=== PATIENT | female | born 1955 | race African-American/Black ===

== ENCOUNTER 2016-05-21 00:09 | Emergency (ER) | payer SELFPAY ==
[~2016-05-21] VITALS: Ht 177.8 cm; Wt 74.8 kg
[2016-05-21 00:41] LABS: Basophils # (auto) 0.1 uL; Basophils % (auto) 1.4 % (0.0-2.0); DEFINITIVE VIEW TRANSMISSION; Eosinophils # (auto) 0.1 uL; Eosinophils % (auto) 0.9 % (0.0-7.0); Hematocrit 41.2 % (36.0-46.0); Hemoglobin 12.4 g/dL (12.2-16.2); Lymphocytes # (auto) 1.7 uL; Lymphocytes % (auto) 16.2 % (10.0-50.0); Mean Corpuscular Hemoglobin 27.3 pg (28.0-32.0); Mean Corpuscular Hgb Conc. 30.2 g/dL (32.0-36.0); Mean Corpuscular Volume 90.2 fL (80.0-100.0); Mean Platelet Volume 9.5 fL (7.4-10.4); Monocytes # (auto) 0.7 uL; Neutrophils # (auto) 7.7 uL; Neutrophils % (auto) 74.5 % (37.0-80.0); Platelet Count (auto) 163 10^3/uL (140-450); Red Cell Distribution Width 13.4 % (11.6-16.0); White Blood Cell 10.3 10^3/uL (4.4-10.8)
[2016-05-21 00:54] LABS: INR 0.98 (0.9-1.15); Partial Thromboplastin Time 24.6 sec (22.64-33.71); Prothrombin Time 10.6 sec (9.37-12.3)
[2016-05-21 01:06] LABS: Albumin 3.9 g/dL (3.4-5.0); Anion Gap 6 (5-15); Aspartate Aminotransferase 23 U/L (15-37); BUN/Creatinine Ratio 8.7; Blood Urea Nitrogen 22 mg/dL (7-18); Calcium 10.6 mg/dL (8.5-10.1); Carbon Dioxide 22 mmol/L (21-32); Chloride 112 mmol/L (98-107); GFR African American 25 mL/min; GFR Non-African American 20 mL/min; Glucose 110 mg/dL (74-106); Potassium 4.7 mmol/L (3.5-5.1); Sodium 140 mmol/L (136-145)
[2016-05-21 01:10] LABS: Alkaline Phosphatase 101 U/L (45-117); Bilirubin, Total 0.3 mg/dL (0.2-1.0); Total Protein 8.2 g/dL (6.4-8.2)
[2016-05-21] MEDS ORDERED: HYDROmorphone HCL 2 MG/ML VL IV ONE (03:00)
[2016-05-21] MEDS ORDERED: ONDANSETRON HCL 4 MG/2 ML VIAL IV ONE (03:00)
[2016-05-21] MEDS ORDERED: SODIUM CHLORIDE 0.9% 1,000 ML IV ONE (03:00)
[2016-05-21 05:10] VITALS: BP 115/39
[2016-05-21 05:18] LABS: Urine Bilirubin Negative (Negative); Urine Blood Negative /uL (Negative); Urine Color Yellow (Yellow); Urine Glucose Normal (Normal); Urine Hyaline Cast MOD /lpf (0 - 2); Urine Ketone Negative (Negative); Urine Mucus FEW (None Seen); Urine Nitrite Negative (Negative); Urine RBC 6 /hpf (0 - 4); Urine Squamous Epithelial Cell FEW /hpf (<5); Urine Urobilinogen Normal (Negative); Urine pH 5.5 (5.0-8.0)
== END 2016-05-21 06:28 | disposition home or self-care (01) ==
LOC: ER 00:11
DX: N20.0 Calculus of kidney (principal); F12.10 Cannabis abuse, uncomplicated; F14.10 Cocaine abuse, uncomplicated; I10 Essential (primary) hypertension; J45.909 Unspecified asthma, uncomplicated; R11.2 Nausea with vomiting, unspecified; F17.210 Nicotine dependence, cigarettes, uncomplicated; Z88.0 Allergy status to penicillin
CPT/HCPCS: 36415; 74176; 80053; 81001; 82150; 83690; 83735; 84484; 85025; 85610; 85730; 93005; 94761; 96361; 96374; 96375; 99285; G0434; J1170; J2405; J7030

== ENCOUNTER 2016-06-10 08:01 | Observation (INO) | payer MEDICAID ==
[~2016-06-10] VITALS: Ht 180.3 cm; Wt 68.0 kg
[2016-06-10] MEDS ORDERED: SODIUM CHLORIDE 0.9% 1,000 ML IV ONE (08:57)
[2016-06-10] MEDS ORDERED: PROCHLORPERAZINE EDISYLATE 5 MG/ML 2ML VIAL IV ONE (09:00)
[2016-06-10] MEDS ORDERED: NALBUPHINE HCL 10 MG/1ml INJECTION IV ONE (09:00)
[2016-06-10 10:24] LABS: Basophils # (auto) 0 uL; Basophils % (auto) 0.4 % (0.0-2.0); Eosinophils # (auto) 0.1 uL; Eosinophils % (auto) 0.7 % (0.0-7.0); Hematocrit 40.1 % (36.0-46.0); Hemoglobin 12.9 g/dL (12.2-16.2); Lymphocytes # (auto) 1.7 uL; Lymphocytes % (auto) 18.9 % (10.0-50.0); Mean Corpuscular Hemoglobin 27.9 pg (28.0-32.0); Mean Corpuscular Volume 87.1 fL (80.0-100.0); Mean Platelet Volume 10.5 fL (7.4-10.4); Monocytes # (auto) 0.3 uL; Monocytes % (auto) 3.7 % (0.0-12.0); Neutrophils # (auto) 6.7 uL; Neutrophils % (auto) 76.3 % (37.0-80.0); Platelet Count (auto) 212 10^3/uL (140-450); SUSPECT VIEW TRANSMISSION; White Blood Cell 8.8 10^3/uL (4.4-10.8)
[2016-06-10 10:30] LABS: Albumin 4.4 g/dL (3.4-5.0); Alkaline Phosphatase 102 U/L (45-117); Anion Gap 8 (5-15); Aspartate Aminotransferase 23 U/L (15-37); BUN/Creatinine Ratio 8.7; Bilirubin, Total 0.9 mg/dL (0.2-1.0); Blood Urea Nitrogen 15 mg/dL (7-18); Calcium 11.1 mg/dL (8.5-10.1); Carbon Dioxide 22 mmol/L (21-32); Chloride 106 mmol/L (98-107); GFR African American 38 mL/min; GFR Non-African American 32 mL/min; Glucose 97 mg/dL (74-106); Magnesium 2.2 mg/dL (1.6-2.6); Potassium 4.3 mmol/L (3.5-5.1); Sodium 136 mmol/L (136-145); Total Protein 9.2 g/dL (6.4-8.2)
[2016-06-10 11:29] LABS: Urine Bilirubin Negative (Negative); Urine Blood Negative /uL (Negative); Urine Color Yellow (Yellow); Urine Glucose Normal (Normal); Urine Ketone Negative (Negative); Urine Nitrite Negative (Negative); Urine RBC <1 /hpf (0 - 4); Urine Squamous Epithelial Cell FEW /hpf (<5); Urine Urobilinogen Normal (Negative); Urine pH 6.5 (5.0-8.0)
[2016-06-10 15:02] VITALS: BP 114/64
== END 2016-06-10 15:58 | disposition home or self-care (01) | DRG 249 ==
LOC: ER 08:09 → OVERFLOW 08:59 → ER 15:50
PROVIDERS: ADMIT Emergency Medicine; ATTEND Emergency Medicine
DX: K52.9 Noninfective gastroenteritis and colitis, unspecified (principal); E83.52 Hypercalcemia; I10 Essential (primary) hypertension; N28.9 Disorder of kidney and ureter, unspecified; F17.210 Nicotine dependence, cigarettes, uncomplicated; Z82.49 Family history of ischemic heart disease and other diseases of the circulatory system; Z83.3 Family history of diabetes mellitus
CPT/HCPCS: 36415; 71020; 74176; 80053; 81001; 83690; 83735; 84484; 85025; 93005; 96361; 96374; 96375; 99285; G0378; J0780; J2300; J7030

== ENCOUNTER 2016-06-11 16:04 | Inpatient (IN) | payer MEDICAID ==
[~2016-06-11] VITALS: Ht 180.3 cm; Wt 68.0 kg
[2016-06-11] MEDS ORDERED: SODIUM CHLORIDE 0.9% 1,000 ML IVB ONE (16:36)
[2016-06-11] MEDS ORDERED: METOCLOPRAMIDE HCL 5MG/ml INJ 2ml VIAL IV ONE (16:45)
[2016-06-11] MEDS ORDERED: NALBUPHINE HCL 10 MG/1ml INJECTION IV ONE (16:45)
[2016-06-11 16:46] LABS: Basophils # (auto) 0.1 uL; Basophils % (auto) 0.7 % (0.0-2.0); Eosinophils # (auto) 0 uL; Eosinophils % (auto) 0.3 % (0.0-7.0); Hematocrit 44.1 % (36.0-46.0); Lymphocytes # (auto) 1.5 uL; Lymphocytes % (auto) 15.8 % (10.0-50.0); Mean Corpuscular Hemoglobin 27.5 pg (28.0-32.0); Mean Corpuscular Hgb Conc. 31.6 g/dL (32.0-36.0); Mean Corpuscular Volume 86.9 fL (80.0-100.0); Mean Platelet Volume 9.8 fL (7.4-10.4); Monocytes # (auto) 0.6 uL; Monocytes % (auto) 5.9 % (0.0-12.0); Neutrophils # (auto) 7.5 uL; Neutrophils % (auto) 77.3 % (37.0-80.0); Platelet Count (auto) 235 10^3/uL (140-450); Red Cell Distribution Width 14.1 % (11.6-16.0); SUSPECT VIEW TRANSMISSION; White Blood Cell 9.7 10^3/uL (4.4-10.8)
[2016-06-11 16:51] LABS: Albumin 4.7 g/dL (3.4-5.0); BUN/Creatinine Ratio 12.3; Calcium 11.4 mg/dL (8.5-10.1); Potassium 4.2 mmol/L (3.5-5.1)
[2016-06-11 16:54] LABS: Bilirubin, Total 0.6 mg/dL (0.2-1.0); Total Protein 9.3 g/dL (6.4-8.2)
[2016-06-11 16:55] LABS: Magnesium 2.3 mg/dL (1.6-2.6)
[2016-06-11 18:45] LABS: Urine Bilirubin Negative (Negative); Urine Blood Negative /uL (Negative); Urine Color Yellow (Yellow); Urine Glucose Normal (Normal); Urine Ketone Negative (Negative); Urine Nitrite Negative (Negative); Urine RBC <1 /hpf (0 - 4); Urine Squamous Epithelial Cell FEW /hpf (<5); Urine Urobilinogen Normal (Negative)
[2016-06-11] MEDS ORDERED: SODIUM CHLORIDE 0.9% 1,000 ML IV ONE (18:45)
[2016-06-11] MEDS ORDERED: ACETAMINOPHEN 325 MG TAB PO PRN (22:45)
[2016-06-11] MEDS ORDERED: cloNIDine HCL 0.1 MG TAB PO PRN (22:45)
[2016-06-11] MEDS ORDERED: TEMAZEPAM 15 MG CAP PO PRN (22:45)
[2016-06-11] MEDS ORDERED: PANTOPRAZOLE SODIUM 40 MG/10 ML VIAL IV ONE (22:45)
[2016-06-11] MEDS ORDERED: ONDANSETRON HCL 4 MG/2 ML VIAL IV PRN (22:45)
[2016-06-11] MEDS ORDERED: HYDROcodone-ACET 5/325MG TAB PO PRN (22:45)
[2016-06-11] MEDS: MORPHINE SULF INJ 2 MG/ML SYRINGE 1ML IV PRN (23:08)
[2016-06-11] MEDS: SODIUM CHLORIDE 0.9% 1,000 ML IV SCH (23:08)
[2016-06-11 23:20] VITALS: BP 159/82
[2016-06-12] MEDS: MORPHINE SULF INJ 2 MG/ML SYRINGE 1ML IV PRN ×2 (02:58→08:15)
[2016-06-12 05:14] VITALS: BP 147/73
[2016-06-12 06:36] LABS: Basophils # (auto) 0.1 uL; Basophils % (auto) 1.6 % (0.0-2.0); Eosinophils # (auto) 0.2 uL; Eosinophils % (auto) 1.9 % (0.0-7.0); Hematocrit 38.3 % (36.0-46.0); Hemoglobin 12.2 g/dL (12.2-16.2); Lymphocytes # (auto) 3.3 uL; Lymphocytes % (auto) 40.2 % (10.0-50.0); Mean Corpuscular Hemoglobin 27.7 pg (28.0-32.0); Mean Corpuscular Hgb Conc. 31.9 g/dL (32.0-36.0); Mean Corpuscular Volume 87.1 fL (80.0-100.0); Mean Platelet Volume 10.1 fL (7.4-10.4); Monocytes # (auto) 0.7 uL; Monocytes % (auto) 8.9 % (0.0-12.0); Neutrophils # (auto) 3.9 uL; Neutrophils % (auto) 47.4 % (37.0-80.0); Platelet Count (auto) 180 10^3/uL (140-450); Red Cell Distribution Width 13.7 % (11.6-16.0); White Blood Cell 8.2 10^3/uL (4.4-10.8)
[2016-06-12 06:49] LABS: Albumin 3.6 g/dL (3.4-5.0); Bilirubin, Total 0.7 mg/dL (0.2-1.0); Calcium 10.5 mg/dL (8.5-10.1); Potassium 4.2 mmol/L (3.5-5.1)
[2016-06-12 09:00] VITALS: BP 125/88
[2016-06-12] MEDS ORDERED: PANTOPRAZOLE SODIUM 40 MG/10 ML VIAL IV SCH (10:00)
[2016-06-12] MEDS ORDERED: ENOXAPARIN SOD 40 MG/0.4 ML SYRINGE SC SCH (10:00)
[2016-06-12] MEDS: SODIUM CHLORIDE 0.9% 1,000 ML IV SCH (11:58)
[2016-06-12 17:00] VITALS: BP 155/72
== END 2016-06-12 14:36 | disposition home or self-care (01) | DRG 247 ==
LOC: ER 16:04 → OVERFLOW 16:05 → EAST 23:20 → CENTRAL 06-12 12:38
PROVIDERS: ADMIT Nurse Practitioner; ATTEND Nurse Practitioner
DX: K56.7 Ileus, unspecified (principal); N18.3 Chronic kidney disease, stage 3 (moderate); E83.52 Hypercalcemia; R73.9 Hyperglycemia, unspecified; F15.90 Other stimulant use, unspecified, uncomplicated; F17.210 Nicotine dependence, cigarettes, uncomplicated; I12.9 Hypertensive chronic kidney disease with stage 1 through stage 4 chronic kidney disease, or unspecified chronic kidney disease; J45.909 Unspecified asthma, uncomplicated; Z82.49 Family history of ischemic heart disease and other diseases of the circulatory system; Z83.3 Family history of diabetes mellitus; Z88.0 Allergy status to penicillin; F19.10 Other psychoactive substance abuse, uncomplicated; Z71.51 Drug abuse counseling and surveillance of drug abuser
CPT/HCPCS: 36415; 80053; 80307; 81001; 83690; 83735; 83970; 85025; 96361; 96374; 96375; C9113

== ENCOUNTER 2016-06-22 13:17 | Inpatient (IN) | payer MEDICAID ==
[~2016-06-22] VITALS: Ht 167.6 cm; Wt 63.5 kg
[2016-06-22 14:24] LABS: Basophils # (auto) 0 uL; Basophils % (auto) 0.2 % (0.0-2.0); Eosinophils # (auto) 0.1 uL; Eosinophils % (auto) 0.6 % (0.0-7.0); Hematocrit 37.1 % (36.0-46.0); Hemoglobin 11.6 g/dL (12.2-16.2); Lymphocytes # (auto) 1.4 uL; Mean Corpuscular Hemoglobin 27.5 pg (28.0-32.0); Mean Corpuscular Hgb Conc. 31.4 g/dL (32.0-36.0); Mean Corpuscular Volume 87.4 fL (80.0-100.0); Mean Platelet Volume 9.7 fL (7.4-10.4); Monocytes # (auto) 0.5 uL; Monocytes % (auto) 5.1 % (0.0-12.0); Neutrophils % (auto) 78.1 % (37.0-80.0); Nucleated Red Blood Cells % 2.5 %; Platelet Count (auto) 198 10^3/uL (140-450); Red Cell Distribution Width 14.5 % (11.6-16.0); White Blood Cell 8.9 10^3/uL (4.4-10.8)
[2016-06-22 14:48] LABS: Albumin 3.8 g/dL (3.4-5.0); Alkaline Phosphatase 81 U/L (45-117); Anion Gap 4 (5-15); Aspartate Aminotransferase 10 U/L (15-37); BUN/Creatinine Ratio 12.3; Bilirubin, Total 0.5 mg/dL (0.2-1.0); Blood Urea Nitrogen 20 mg/dL (7-18); Calcium 10.8 mg/dL (8.5-10.1); Carbon Dioxide 24 mmol/L (21-32); Chloride 112 mmol/L (98-107); GFR African American 41 mL/min; GFR Non-African American 34 mL/min; Glucose 95 mg/dL (74-106); Potassium 5.1 mmol/L (3.5-5.1); Sodium 140 mmol/L (136-145)
[2016-06-22] MEDS ORDERED: SODIUM CHLORIDE 0.9% 1,000 ML IVB ONE (15:05)
[2016-06-22] MEDS ORDERED: MORPHINE SULF INJ 2 MG/ML SYRINGE 1ML IV ONE ×4 (15:15→23:00)
[2016-06-22 15:48] LABS: INR 0.99 (0.9-1.15); Partial Thromboplastin Time 25.4 sec (22.64-33.71); Prothrombin Time 10.7 sec (9.37-12.3)
[2016-06-22 16:44] LABS: Amylase 91 U/L (25-115)
[2016-06-22] MEDS ORDERED: ONDANSETRON HCL 4 MG/2 ML VIAL IV ONE ×2 (19:00→23:00)
[2016-06-22] MEDS ORDERED: SODIUM CHLORIDE 0.9% 1,000 ML IV ONE (20:30)
[2016-06-22] MEDS ORDERED: PANTOPRAZOLE SODIUM 40 MG/10 ML VIAL IV ONE (22:00)
[2016-06-22] MEDS ORDERED: ONDANSETRON HCL 4 MG/2 ML VIAL ONE (22:49)
[2016-06-23] MEDS ORDERED: SODIUM CHLORIDE 0.9% 1,000 ML IV SCH ×2 (01:12→01:30)
[2016-06-23] MEDS ORDERED: ACETAMINOPHEN 325 MG TAB PO PRN (01:15)
[2016-06-23] MEDS ORDERED: DOCUSATE SOD 100 MG CAP PO PRN (01:15)
[2016-06-23] MEDS ORDERED: ONDANSETRON HCL 4 MG/2 ML VIAL IV PRN (01:15)
[2016-06-23] MEDS: MORPHINE SULF INJ 2 MG/ML SYRINGE 1ML IV PRN ×2 (03:00→08:46)
[2016-06-23 08:00] VITALS: BP 133/73
[2016-06-23 09:00] VITALS: BP 133/73
[2016-06-23] MEDS ORDERED: FAMOTIDINE (10MG/ML) 2ML VL IV ONE (10:00)
[2016-06-23] MEDS ORDERED: PANTOPRAZOLE 40 MG TAB PO ONE (12:15)
[2016-06-23 13:00] VITALS: BP 132/96
[2016-06-23] MEDS ORDERED: POTA10TA34 PO (13:39)
[2016-06-23] MEDS ORDERED: TRAM50TA2 PO (13:39)
[2016-06-23] MEDS ORDERED: CYCL1TAB18 PO (13:39)
[2016-06-23] MEDS ORDERED: PANT1INJ3 PO (13:39)
[2016-06-23] MEDS ORDERED: ATOR10TA52 PO (13:39)
[2016-06-23 14:25] VITALS: BP 132/96
[2016-06-23] MEDS ORDERED: PANTOPRAZOLE 40 MG TAB PO SCH (22:00)
[2016-06-24] MEDS ORDERED: SODIUM CHLORIDE 0.9% 1,000 ML IV SCH (01:30)
== END 2016-06-23 16:10 | disposition home or self-care (01) | DRG 776 ==
LOC: EDBD 13:17 → ER 13:24 → OVERFLOW 13:25 → WEST WING 06-23 07:30
PROVIDERS: ADMIT Emergency Medicine; ATTEND Internal Medicine
DX: F12.988 Cannabis use, unspecified with other cannabis-induced disorder (principal); N18.3 Chronic kidney disease, stage 3 (moderate); I12.9 Hypertensive chronic kidney disease with stage 1 through stage 4 chronic kidney disease, or unspecified chronic kidney disease; F32.9 Major depressive disorder, single episode, unspecified; R11.2 Nausea with vomiting, unspecified; D64.9 Anemia, unspecified; E78.5 Hyperlipidemia, unspecified; F17.210 Nicotine dependence, cigarettes, uncomplicated; F41.9 Anxiety disorder, unspecified; K21.9 Gastro-esophageal reflux disease without esophagitis; Z82.49 Family history of ischemic heart disease and other diseases of the circulatory system; Z83.3 Family history of diabetes mellitus; Z91.19 Patient's noncompliance with other medical treatment and regimen; Z88.0 Allergy status to penicillin; Z90.49 Acquired absence of other specified parts of digestive tract
CPT/HCPCS: 36415; 71010; 74176; 80053; 81001; 82150; 82962; 83690; 83735; 84484; 85025; 85610; 85730; 87081; 93005; 94761; 96361; 96374; 96375; 96376; C9113; G0378; J2405; J3490

== ENCOUNTER 2016-08-23 19:57 | Inpatient (IN) | payer MEDICAID ==
[~2016-08-23] VITALS: Ht 177.8 cm; Wt 54.7 kg
[~2016-08-23 19:57] MED LIST: ATOR10TA52 PO; CYCL1TAB18 PO; PANT1INJ3 PO; POTA10TA34 PO; TRAM50TA2 PO
[2016-08-23] MEDS ORDERED: ONDANSETRON HCL 4 MG/2 ML VIAL IV ONE (20:45)
[2016-08-23] MEDS ORDERED: SODIUM CHLORIDE 0.9% 1,000 ML IVB ONE (20:45)
[2016-08-23] MEDS ORDERED: MORPHINE SULF INJ 2 MG/ML SYRINGE 1ML ONE (20:48)
[2016-08-23 20:52] LABS: Basophils # (auto) 0 uL; Basophils % (auto) 0.4 % (0.0-2.0); CONDITION Y; Eosinophils # (auto) 0.1 uL; Eosinophils % (auto) 0.9 % (0.0-7.0); Hemoglobin 12.5 g/dL (12.2-16.2); Lymphocytes % (auto) 14.8 % (10.0-50.0); Mean Corpuscular Hgb Conc. 32.9 g/dL (32.0-36.0); Mean Corpuscular Volume 88.3 fL (80.0-100.0); Mean Platelet Volume 9.7 fL (7.4-10.4); Monocytes # (auto) 0.8 uL; Neutrophils # (auto) 10.4 uL; Neutrophils % (auto) 77.9 % (37.0-80.0); Platelet Count (auto) 202 10^3/uL (140-450); Red Cell Distribution Width 14.4 % (11.6-16.0); SUSPECT SEE PRINTOUT; White Blood Cell 13.3 10^3/uL (4.4-10.8)
[2016-08-23 21:14] LABS: Albumin 4.3 g/dL (3.4-5.0); Alkaline Phosphatase 99 U/L (45-117); Anion Gap 8 (5-15); Aspartate Aminotransferase 13 U/L (15-37); BUN/Creatinine Ratio 14.4; Bilirubin, Total 0.4 mg/dL (0.2-1.0); Blood Urea Nitrogen 37 mg/dL (7-18); Calcium 11.5 mg/dL (8.5-10.1); Carbon Dioxide 20 mmol/L (21-32); Chloride 108 mmol/L (98-107); GFR African American 24 mL/min; GFR Non-African American 20 mL/min; Glucose 118 mg/dL (74-106); Magnesium 2.3 mg/dL (1.6-2.6); Potassium 4.6 mmol/L (3.5-5.1); Sodium 136 mmol/L (136-145); Total Protein 8.8 g/dL (6.4-8.2)
[2016-08-23 21:15] LABS: B-Type Natriuretic Peptide 3.98 pg/mL (0-100)
[2016-08-23 21:23] LABS: Temperature: 23.3 C (20.0-25.0)
[2016-08-23 21:29] LABS: Giant Platelets Few; Platelet Estimate Adequate
[2016-08-23] MEDS ORDERED: MORPHINE SULF INJ 2 MG/ML SYRINGE 1ML IV ONE (21:30)
[2016-08-23 23:07] LABS: Urine Bilirubin Negative (Negative); Urine Blood Negative /uL (Negative); Urine Color Yellow (Yellow); Urine Glucose Normal (Normal); Urine Hyaline Cast FEW /lpf (0 - 2); Urine Ketone Negative (Negative); Urine Mucus FEW (None Seen); Urine Nitrite Negative (Negative); Urine RBC <1 /hpf (0 - 4); Urine Squamous Epithelial Cell FEW /hpf (<5); Urine Urobilinogen Normal (Negative); Urine pH 5.5 (5.0-8.0)
[2016-08-24] VITALS (7 sets, daily range): BP systolic 104–175; BP diastolic 52–77
[2016-08-24] MEDS ORDERED: HYDROcodone-ACET 5/325MG TAB PO ONE
[2016-08-24] MEDS ORDERED: PANTOPRAZOLE 40 MG/10 ML VIAL IV ONE (01:30)
[2016-08-24] MEDS ORDERED: ACETAMINOPHEN 325 MG TAB PO PRN (01:30)
[2016-08-24] MEDS: SODIUM CHLORIDE 0.9% 1,000 ML IV SCH ×2 (02:09→13:53)
[2016-08-24] MEDS: MORPHINE SULF INJ 2 MG/ML SYRINGE 1ML IV PRN ×4 (02:10→21:31)
[2016-08-24] MEDS: HYDROcodone-ACET 5/325MG TAB PO PRN ×2 (04:30→10:47)
[2016-08-24] MEDS: cloNIDine HCL 0.1 MG TAB PO PRN (06:01)
[2016-08-24] MEDS: ENOXAPARIN SOD 30 MG/0.3 ML SYRINGE SC SCH (09:41)
[2016-08-24] MEDS ORDERED: PANTOPRAZOLE 40 MG/10 ML VIAL IV SCH (10:00)
[2016-08-24 13:02] LABS: Basophils # (auto) 0.1 uL; Basophils % (auto) 0.9 % (0.0-2.0); CONDITION Y; Eosinophils # (auto) 0 uL; Eosinophils % (auto) 0.1 % (0.0-7.0); Hemoglobin 11.3 g/dL (12.2-16.2); Lymphocytes # (auto) 2.3 uL; Lymphocytes % (auto) 24.7 % (10.0-50.0); Mean Corpuscular Hemoglobin 28.5 pg (28.0-32.0); Mean Corpuscular Hgb Conc. 32.2 g/dL (32.0-36.0); Mean Corpuscular Volume 88.5 fL (80.0-100.0); Mean Platelet Volume 9.9 fL (7.4-10.4); Monocytes # (auto) 0.7 uL; Monocytes % (auto) 7.2 % (0.0-12.0); Neutrophils # (auto) 6.4 uL; Neutrophils % (auto) 67.1 % (37.0-80.0); Platelet Count (auto) 188 10^3/uL (140-450); Red Cell Distribution Width 14.2 % (11.6-16.0); White Blood Cell 9.5 10^3/uL (4.4-10.8)
[2016-08-24 13:21] LABS: BUN/Creatinine Ratio 17.7; Calcium 10.2 mg/dL (8.5-10.1); Magnesium 2.1 mg/dL (1.6-2.6)
[2016-08-24 13:29] LABS: Phosphorus 2.8 mg/dL (2.5-4.90)
[2016-08-24] MEDS: ONDANSETRON HCL 4 MG/2 ML VIAL IV PRN (21:31)
[2016-08-24] MEDS: PANTOPRAZOLE 40 MG TAB PO SCH (21:31)
[2016-08-25] MEDS: ONDANSETRON HCL 4 MG/2 ML VIAL IV PRN (03:48)
[2016-08-25] MEDS: MORPHINE SULF INJ 2 MG/ML SYRINGE 1ML IV PRN ×4 (03:48→23:31)
[2016-08-25] MEDS: SODIUM CHLORIDE 0.9% 1,000 ML IV SCH ×2 (03:48→16:22)
[2016-08-25 05:39] LABS: Urine Bilirubin Negative (Negative); Urine Blood Negative /uL (Negative); Urine Color Yellow (Yellow); Urine Glucose Normal (Normal); Urine Ketone Negative (Negative); Urine Nitrite Negative (Negative); Urine RBC <1 /hpf (0 - 4); Urine Squamous Epithelial Cell FEW /hpf (<5); Urine Urobilinogen Normal (Negative); Urine pH 5.5 (5.0-8.0)
[2016-08-25 05:40] LABS: Basophils # (auto) 0.2 uL; Basophils % (auto) 2.3 % (0.0-2.0); CONDITION Y; Eosinophils # (auto) 0.1 uL; Eosinophils % (auto) 1.6 % (0.0-7.0); Hematocrit 35.3 % (36.0-46.0); Hemoglobin 11.3 g/dL (12.2-16.2); Lymphocytes # (auto) 4.1 uL; Lymphocytes % (auto) 48.6 % (10.0-50.0); Mean Corpuscular Hemoglobin 28.1 pg (28.0-32.0); Mean Corpuscular Hgb Conc. 31.9 g/dL (32.0-36.0); Mean Corpuscular Volume 88.2 fL (80.0-100.0); Mean Platelet Volume 10.2 fL (7.4-10.4); Monocytes # (auto) 0.7 uL; Monocytes % (auto) 8.4 % (0.0-12.0); Neutrophils # (auto) 3.3 uL; Neutrophils % (auto) 39.1 % (37.0-80.0); Platelet Count (auto) 183 10^3/uL (140-450); Red Cell Distribution Width 13.9 % (11.6-16.0); SUSPECT SEE PRINTOUT; White Blood Cell 8.4 10^3/uL (4.4-10.8)
[2016-08-25 05:50] VITALS: BP 107/61
[2016-08-25 06:25] LABS: Albumin 3.6 g/dL (3.4-5.0); BUN/Creatinine Ratio 14.5; Bilirubin, Total 0.8 mg/dL (0.2-1.0); Calcium 10.7 mg/dL (8.5-10.1); Phosphorus 1.6 mg/dL (2.5-4.90); Potassium 4.9 mmol/L (3.5-5.1); Total Protein 7.8 g/dL (6.4-8.2); Uric Acid 6.7 mg/dL (2.6-6.0)
[2016-08-25 08:00] VITALS: BP 100/51
[2016-08-25] MEDS: ENOXAPARIN SOD 30 MG/0.3 ML SYRINGE SC SCH (09:42)
[2016-08-25] MEDS: PANTOPRAZOLE 40 MG TAB PO SCH ×2 (09:42→21:41)
[2016-08-25 12:00] VITALS: BP 115/60
[2016-08-25] MEDS ORDERED: BISACODYL 10 MG RECT SUPP PR PRN (12:30)
[2016-08-25] MEDS ORDERED: SENNA 8.6 MG TAB PO ONE (12:30)
[2016-08-25] MEDS ORDERED: MORPHINE SULF INJ 2 MG/ML SYRINGE 1ML IV ONE (12:30)
[2016-08-25 17:06] VITALS: BP 130/79
[2016-08-25 20:00] VITALS: BP 125/65
[2016-08-25] MEDS: DOCUSATE SOD 100 MG CAP PO SCH (21:40)
[2016-08-25 22:00] VITALS: BP 125/65
[2016-08-26] MEDS: SODIUM CHLORIDE 0.9% 1,000 ML IV SCH ×2 (03:23→15:53)
[2016-08-26 05:00] VITALS: BP 145/69
[2016-08-26 06:21] LABS: BUN/Creatinine Ratio 15.2; Calcium 10.7 mg/dL (8.5-10.1); Potassium 4.5 mmol/L (3.5-5.1)
[2016-08-26] MEDS: MORPHINE SULF INJ 2 MG/ML SYRINGE 1ML IV PRN ×3 (08:41→20:55)
[2016-08-26] MEDS: PANTOPRAZOLE 40 MG TAB PO SCH ×2 (08:41→20:56)
[2016-08-26] MEDS: DOCUSATE SOD 100 MG CAP PO SCH ×2 (08:42→20:56)
[2016-08-26] MEDS: ENOXAPARIN SOD 30 MG/0.3 ML SYRINGE SC SCH (08:42)
[2016-08-26 09:00] VITALS: BP 108/66
[2016-08-26] MEDS: HYDROcodone-ACET 5/325MG TAB PO PRN ×2 (12:53→18:59)
[2016-08-26 13:06] VITALS: BP 129/76
[2016-08-26 17:00] VITALS: BP 175/76
[2016-08-26] MEDS: cloNIDine HCL 0.1 MG TAB PO PRN (17:24)
[2016-08-26] MEDS ORDERED: amLODIPine BESYLATE 5 MG TAB PO ONE (19:15)
[2016-08-26 22:00] VITALS: BP 154/78
[2016-08-27] MEDS: ONDANSETRON HCL 4 MG/2 ML VIAL IV PRN (02:16)
[2016-08-27] MEDS: SODIUM CHLORIDE 0.9% 1,000 ML IV SCH (04:25)
[2016-08-27 05:00] VITALS: BP 100/56
[2016-08-27] MEDS: MORPHINE SULF INJ 2 MG/ML SYRINGE 1ML IV PRN (05:44)
[2016-08-27 09:00] VITALS: BP 111/74
[2016-08-27] MEDS: HYDROcodone-ACET 5/325MG TAB PO PRN (10:01)
[2016-08-27] MEDS: DOCUSATE SOD 100 MG CAP PO SCH (10:01)
[2016-08-27] MEDS: PANTOPRAZOLE 40 MG TAB PO SCH (10:01)
[2016-08-27] MEDS: ENOXAPARIN SOD 30 MG/0.3 ML SYRINGE SC SCH (10:01)
[2016-09-22] MEDS ORDERED: PANT40T PO (12:19)
[2016-09-22] MEDS ORDERED: ALBUAER3 IN (14:17)
== END 2016-08-27 14:57 | disposition home or self-care (01) | DRG 241 ==
LOC: ER 19:57 → OVERFLOW 19:58 → WEST WING 08-24 02:25
PROVIDERS: ADMIT Nurse Practitioner; ATTEND Nurse Practitioner Acute Care
DX: K29.70 Gastritis, unspecified, without bleeding (principal); N17.0 Acute kidney failure with tubular necrosis; K52.9 Noninfective gastroenteritis and colitis, unspecified; N28.1 Cyst of kidney, acquired; I12.9 Hypertensive chronic kidney disease with stage 1 through stage 4 chronic kidney disease, or unspecified chronic kidney disease; E83.52 Hypercalcemia; E78.5 Hyperlipidemia, unspecified; K21.9 Gastro-esophageal reflux disease without esophagitis; I70.0 Atherosclerosis of aorta; G89.4 Chronic pain syndrome; M25.461 Effusion, right knee; N18.3 Chronic kidney disease, stage 3 (moderate); J98.11 Atelectasis; F17.210 Nicotine dependence, cigarettes, uncomplicated; F12.90 Cannabis use, unspecified, uncomplicated; Z90.49 Acquired absence of other specified parts of digestive tract; Z79.899 Other long term (current) drug therapy; Z88.0 Allergy status to penicillin; Z71.6 Tobacco abuse counseling; Z82.49 Family history of ischemic heart disease and other diseases of the circulatory system; Z83.3 Family history of diabetes mellitus
CPT/HCPCS: 36415; 71010; 71250; 73560; 74176; 76775; 80048; 80053; 80307; 81001; 82150; 82570; 83605; 83690; 83735; 83880; 83970; 84100; 84156; 84300; 84484; 84550; 85025; 87040; 93005; 94761; 96374; 96375; C9113; J2405

== ENCOUNTER 2017-03-31 09:12 | Inpatient (IN) | payer OTHER ==
[~2017-03-31] VITALS: Ht 180.3 cm; Wt 85.4 kg
[~2017-03-31 09:12] MED LIST changes: +ALBUAER3 IN; -ATOR10TA52 PO; -CYCL1TAB18 PO; -PANT1INJ3 PO; +PANT40T PO; -POTA10TA34 PO; -TRAM50TA2 PO
[2017-03-31 10:14] LABS: Basophils # (auto) 0.1 uL; Basophils % (auto) 1.3 % (0.0-2.0); Eosinophils # (auto) 0.1 uL; Eosinophils % (auto) 0.7 % (0.0-7.0); Hematocrit 43.5 % (36.0-46.0); Hemoglobin 13.6 g/dL (12.2-16.2); Lymphocytes # (auto) 1.9 uL; Lymphocytes % (auto) 21.8 % (10.0-50.0); Mean Corpuscular Hemoglobin 27.4 pg (28.0-32.0); Mean Corpuscular Hgb Conc. 31.3 g/dL (32.0-36.0); Mean Corpuscular Volume 87.6 fL (80.0-100.0); Monocytes # (auto) 0.5 uL; Monocytes % (auto) 5.8 % (0.0-12.0); Neutrophils # (auto) 6.2 uL; Neutrophils % (auto) 70.4 % (37.0-80.0); Platelet Count (auto) 241 10^3/uL (140-450); Red Blood Cells 4.96 10^6/uL (4.0-5.20); White Blood Cell 8.8 10^3/uL (4.4-10.8)
[2017-03-31 10:24] LABS: Alcohol, Urine < 3.0 mg/dL (0-5); Amphetamine Screen, Urine NEGATIVE (NEGATIVE); Barbiturate Scree,Urine NEGATIVE (NEGATIVE); Benzodiazephine Screen, Urine NEGATIVE (NEGATIVE); Cannabinoid Screen, Urine POSITIVE (NEGATIVE); Cocaine Screen, Urine POSITIVE (NEGATIVE); Opiate Scree,Urine NEGATIVE (NEGATIVE); Phencyclidine Screen, Urine NEGATIVE (NEGATIVE)
[2017-03-31 10:25] LABS: Urine Bacteria NONE SEEN /hpf (None Seen); Urine Blood Negative /uL (Negative); Urine Specific Gravity 1.017 (1.001-1.035); Urine WBC 1 /hpf (0 - 5)
[2017-03-31] MEDS ORDERED: SODIUM CHLORIDE 0.9% 1,000 ML IVB ONE (10:41)
[2017-03-31 10:42] LABS: Albumin 4.7 g/dL (3.4-5.0); BUN/Creatinine Ratio 11.2; Bilirubin, Total 0.8 mg/dL (0.2-1.0); Calcium 11.2 mg/dL (8.5-10.1); Potassium 4.6 mmol/L (3.5-5.1); Total Protein 9.8 g/dL (6.4-8.2)
[2017-03-31] MEDS ORDERED: LORazepam 2MG/ML-1ML VIAL IV ONE (10:45)
[2017-03-31] MEDS ORDERED: PROMETHAZINE HCL 25 MG/ML 1ML IV PRN (10:45)
[2017-03-31] MEDS ORDERED: PANTOPRAZOLE 40 MG TAB PO ONE (10:45)
[2017-03-31] MEDS ORDERED: DONNATAL 5ml ORAL Elix (BELLADONNA ALK-PHENOBARB) PO ONE (10:45)
[2017-03-31] MEDS ORDERED: MORPHINE SULFATE 4 MG/ML SYR/VIAL IV ONE (10:45)
[2017-03-31] MEDS ORDERED: ALUM & MAG HYDROX-SIMETH LIQ(MAALOX) 30 ML PO ONE (10:45)
[2017-03-31 11:14] LABS: Magnesium 2.2 mg/dL (1.6-2.6)
[2017-03-31] MEDS ORDERED: ONDANSETRON HCL 4 MG/2 ML VIAL IV PRN (14:45)
[2017-03-31] MEDS ORDERED: TEMAZEPAM 15 MG CAP PO PRN (14:45)
[2017-03-31] MEDS ORDERED: DOCUSATE SOD 100 MG CAP PO PRN (14:45)
[2017-03-31] MEDS ORDERED: MORPHINE SULFATE 4 MG/ML SYR/VIAL IV PRN (14:45)
[2017-03-31] MEDS ORDERED: FAMOTIDINE (10MG/ML) 2ML VL IV ONE (14:45)
[2017-03-31] MEDS ORDERED: NITROGLYCERIN 0.4 MG SL TAB SL PRN (14:45)
[2017-03-31] MEDS ORDERED: CYCLOBENZAPRINE HCL 10 MG TAB PO PRN (14:45)
[2017-03-31] MEDS: amLODIPine BESYLATE 5 MG TAB PO SCH (15:31)
[2017-03-31] MEDS: SODIUM CHLORIDE 0.9% 1,000 ML IV SCH ×2 (15:31→16:40)
[2017-03-31] MEDS: ASPirin-EC 81 mg tab PO SCH (15:32)
[2017-03-31 16:09] LABS: INR 0.98 (0.9-1.15); Prothrombin Time 10.7 sec (9.37-12.3)
[2017-03-31 17:11] VITALS: BP 160/94
[2017-03-31] MEDS: ACETAMINOPHEN 325 MG TAB PO PRN (17:25)
[2017-03-31] MEDS: traMADol HCL 50 MG TAB PO PRN (17:25)
[2017-03-31] MEDS: ALBUTEROL SULF 2.5 MG/0.5ML(0.5%) NEB SOLN NEB SCH (18:15)
[2017-03-31 20:00] VITALS: BP 160/80
[2017-03-31] MEDS: MORPHINE SULFATE 4 MG/ML SYR/VIAL IV PRN (20:26)
[2017-03-31 21:01] VITALS: BP 160/94
[2017-03-31] MEDS: ATORVASTATIN 20 MG TAB PO SCH (21:48)
[2017-03-31] MEDS: LABETALOL HCL 200 MG TAB PO SCH (21:48)
[2017-03-31 22:00] VITALS: BP 160/80
[2017-04-01] MEDS: MORPHINE SULFATE 4 MG/ML SYR/VIAL IV PRN ×4 (03:19→20:52)
[2017-04-01 05:00] VITALS: BP 128/76
[2017-04-01] MEDS: LABETALOL HCL 200 MG TAB PO SCH ×3 (05:43→22:27)
[2017-04-01] MEDS: ALBUTEROL SULF 2.5 MG/0.5ML(0.5%) NEB SOLN NEB SCH ×4 (06:21→18:24)
[2017-04-01 07:18] LABS: Basophils # (auto) 0.1 uL; Basophils % (auto) 1.2 % (0.0-2.0); Eosinophils # (auto) 0 uL; Eosinophils % (auto) 0.2 % (0.0-7.0); Hematocrit 38.2 % (36.0-46.0); Hemoglobin 12.2 g/dL (12.2-16.2); Lymphocytes # (auto) 2.7 uL; Lymphocytes % (auto) 24.1 % (10.0-50.0); Mean Corpuscular Hemoglobin 27.7 pg (28.0-32.0); Mean Corpuscular Hgb Conc. 31.8 g/dL (32.0-36.0); Monocytes # (auto) 1.2 uL; Monocytes % (auto) 10.4 % (0.0-12.0); Neutrophils # (auto) 7.2 uL; Neutrophils % (auto) 64.1 % (37.0-80.0); Nucleated Red Blood Cells % 0.1 %; Platelet Count (auto) 216 10^3/uL (140-450); Red Cell Distribution Width 15.1 % (11.8-14.3); White Blood Cell 11.2 10^3/uL (4.4-10.8)
[2017-04-01 07:23] LABS: Albumin 3.7 g/dL (3.4-5.0); BUN/Creatinine Ratio 15.5; Potassium 4.1 mmol/L (3.5-5.1)
[2017-04-01 07:25] LABS: Bilirubin, Total 0.7 mg/dL (0.2-1.0); Total Protein 7.8 g/dL (6.4-8.2)
[2017-04-01 08:00] VITALS: BP 116/68
[2017-04-01 08:45] VITALS: BP 116/68
[2017-04-01] MEDS: MULTIPLE VITAMIN TAB PO SCH (09:36)
[2017-04-01] MEDS: amLODIPine BESYLATE 5 MG TAB PO SCH (09:36)
[2017-04-01] MEDS: ASPirin-EC 81 mg tab PO SCH (09:36)
[2017-04-01] MEDS: FAMOTIDINE (10MG/ML) 2ML VL IV SCH (09:37)
[2017-04-01] MEDS: PANTOPRAZOLE 40 MG TAB PO SCH (09:37)
[2017-04-01] MEDS: SODIUM CHLORIDE 0.9% 1,000 ML IV SCH (09:55)
[2017-04-01 11:51] VITALS: BP 113/65
[2017-04-01] MEDS: ACETAMINOPHEN 325 MG TAB PO PRN (19:08)
[2017-04-01 20:00] VITALS: BP 130/71
[2017-04-01 22:00] VITALS: BP 130/71
[2017-04-01] MEDS: ATORVASTATIN 20 MG TAB PO SCH (22:27)
[2017-04-02] MEDS: MORPHINE SULFATE 4 MG/ML SYR/VIAL IV PRN ×2 (00:55→06:07)
[2017-04-02 05:00] VITALS: BP 135/107
[2017-04-02] MEDS: LABETALOL HCL 200 MG TAB PO SCH ×2 (06:06→14:06)
[2017-04-02] MEDS: ALBUTEROL SULF 2.5 MG/0.5ML(0.5%) NEB SOLN NEB SCH ×3 (06:39→12:00)
[2017-04-02 08:40] VITALS: BP 116/52
[2017-04-02] MEDS: PANTOPRAZOLE 40 MG TAB PO SCH (09:22)
[2017-04-02] MEDS: FAMOTIDINE (10MG/ML) 2ML VL IV SCH (09:22)
[2017-04-02] MEDS: traMADol HCL 50 MG TAB PO PRN (09:22)
[2017-04-02] MEDS: ASPirin-EC 81 mg tab PO SCH (09:23)
[2017-04-02] MEDS: MULTIPLE VITAMIN TAB PO SCH (09:23)
[2017-04-02] MEDS: amLODIPine BESYLATE 5 MG TAB PO SCH (09:23)
[2017-04-02 12:30] VITALS: BP 141/75
[2017-04-02 16:26] VITALS: BP 141/75
[2017-04-02] MEDS: SODIUM CHLORIDE 0.9% 1,000 ML IV SCH (16:37)
== END 2017-04-02 17:30 | disposition home or self-care (01) | DRG 241 ==
LOC: ER 09:12 → TELE 09:13 → TELE-CENTR 16:33
PROVIDERS: ADMIT Internal Medicine; ATTEND Internal Medicine
DX: K29.70 Gastritis, unspecified, without bleeding (principal); I50.20 Unspecified systolic (congestive) heart failure; N18.3 Chronic kidney disease, stage 3 (moderate); K58.9 Irritable bowel syndrome, unspecified; E83.52 Hypercalcemia; E78.5 Hyperlipidemia, unspecified; F14.10 Cocaine abuse, uncomplicated; F41.1 Generalized anxiety disorder; I51.7 Cardiomegaly; K21.9 Gastro-esophageal reflux disease without esophagitis; R74.8 Abnormal levels of other serum enzymes; J44.9 Chronic obstructive pulmonary disease, unspecified; I34.0 Nonrheumatic mitral (valve) insufficiency; I16.0 Hypertensive urgency; F12.10 Cannabis abuse, uncomplicated; Z88.0 Allergy status to penicillin; Z83.3 Family history of diabetes mellitus; Z79.899 Other long term (current) drug therapy; Z82.49 Family history of ischemic heart disease and other diseases of the circulatory system; Z90.49 Acquired absence of other specified parts of digestive tract
CPT/HCPCS: 36415; 71045; 76705; 80053; 80307; 81001; 82150; 82550; 83540; 83690; 83735; 83880; 84484; 85025; 85610; 93005; 93306; 94640; 94761; 96361; 96374; 96375; J3490

== ENCOUNTER 2018-01-30 14:37 | Emergency (ER) | payer OTHER ==
[~2018-01-30] VITALS: Ht 177.8 cm; Wt 81.6 kg
[~2018-01-30 14:37] MED LIST changes: -ALBUAER3 IN
[2018-01-30 15:27] LABS: Basophils # (auto) 0 uL; Basophils % (auto) 0.5 % (0.0-2.0); Eosinophils # (auto) 0.1 uL; Eosinophils % (auto) 1.3 % (0.0-7.0); Hematocrit 42.4 % (36.0-46.0); Hemoglobin 13.2 g/dL (12.2-16.2); Lymphocytes # (auto) 1.7 uL; Lymphocytes % (auto) 23.3 % (10.0-50.0); Mean Corpuscular Hemoglobin 28.2 pg (28.0-32.0); Mean Corpuscular Hgb Conc. 31.2 g/dL (32.0-36.0); Mean Corpuscular Volume 90.3 fL (80.0-100.0); Monocytes # (auto) 0.6 uL; Monocytes % (auto) 7.4 % (0.0-12.0); Neutrophils % (auto) 67.5 % (37.0-80.0); Nucleated Red Blood Cells % 0.1 %; Platelet Count (auto) 160 10^3/uL (140-450); Red Blood Cells 4.69 10^6/uL (4.0-5.20); Red Cell Distribution Width 15.3 % (11.8-14.3); White Blood Cell 7.4 10^3/uL (4.4-10.8)
[2018-01-30 15:42] LABS: Albumin 4.2 g/dL (3.4-5.0); Calcium 10.8 mg/dL (8.5-10.1); Potassium 5.1 mmol/L (3.5-5.1)
[2018-01-30 15:45] LABS: BUN/Creatinine Ratio 12.1; Bilirubin, Total 0.6 mg/dL (0.2-1.0); Total Protein 8.8 g/dL (6.4-8.2)
[2018-01-30 16:57] LABS: Urine Bacteria NONE SEEN /hpf (None Seen); Urine Blood Negative /uL (Negative); Urine Specific Gravity 1.028 (1.001-1.035); Urine WBC <1 /hpf (0 - 5)
[2018-01-30] MEDS ORDERED: ALUM & MAG HYDROX-SIMETH LIQ(MAALOX) 30 ML PO ONE (19:00)
[2018-01-30] MEDS ORDERED: ONDANSETRON ODT 4 MG TAB PO ONE (19:00)
[2018-01-30] MEDS ORDERED: LIDOCAINE VISCOUS 2% 15ML UD PO ONE (19:00)
[2018-01-30] MEDS ORDERED: DONNATAL 5ml ORAL Elix (BELLADONNA ALK-PHENOBARB) PO ONE (19:00)
[2018-01-30 19:25] VITALS: BP 186/105
== END 2018-01-30 20:17 | disposition home or self-care (01) ==
LOC: ER 14:37
DX: K21.9 Gastro-esophageal reflux disease without esophagitis (principal); E78.5 Hyperlipidemia, unspecified; I10 Essential (primary) hypertension; F17.210 Nicotine dependence, cigarettes, uncomplicated; Z90.49 Acquired absence of other specified parts of digestive tract; F12.10 Cannabis abuse, uncomplicated; Z88.0 Allergy status to penicillin
CPT/HCPCS: 36415; 74176; 80053; 81001; 82150; 83690; 85025; 93005; 99284; Q0162

== ENCOUNTER 2018-01-31 00:04 | Emergency (ER) | payer OTHER ==
[~2018-01-31] VITALS: Ht 177.8 cm; Wt 68.0 kg
[2018-01-31 01:09] LABS: Amphetamine Screen, Urine NEGATIVE (NEGATIVE); Barbiturate Scree,Urine NEGATIVE (NEGATIVE); Benzodiazephine Screen, Urine NEGATIVE (NEGATIVE); Cannabinoid Screen, Urine POSITIVE (NEGATIVE); Cocaine Screen, Urine POSITIVE (NEGATIVE); Phencyclidine Screen, Urine NEGATIVE (NEGATIVE)
[2018-01-31 01:17] LABS: Opiate Scree,Urine NEGATIVE (NEGATIVE)
[2018-01-31 02:03] LABS: Magnesium 2.1 mg/dL (1.6-2.6)
[2018-01-31 07:36] VITALS: BP 153/70
[2018-01-31] MEDS ORDERED: KETOROLAC TROMETH 60MG/2ML VIAL IM ONE (08:00)
== END 2018-01-31 08:35 | disposition home or self-care (01) ==
LOC: ER 00:04
DX: R10.13 Epigastric pain (principal); F12.10 Cannabis abuse, uncomplicated; F14.10 Cocaine abuse, uncomplicated; K21.9 Gastro-esophageal reflux disease without esophagitis; F17.210 Nicotine dependence, cigarettes, uncomplicated; E78.5 Hyperlipidemia, unspecified; I10 Essential (primary) hypertension; Z90.49 Acquired absence of other specified parts of digestive tract
CPT/HCPCS: 36415; 80307; 83690; 83735; 84443; 84484; 93005; 96372; 99284; J1885

== ENCOUNTER 2019-10-02 16:12 | Emergency (ER) | payer OTHER ==
[~2019-10-02] VITALS: Ht 162.6 cm; Wt 81.6 kg
[2019-10-02] MEDS ORDERED: SODIUM CHLORIDE 0.9% 500 ML IVB ONE (16:33)
[2019-10-02] MEDS ORDERED: PANTOPRAZOLE 40 MG/10 ML VIAL INJ IV STA (16:33)
[2019-10-02] MEDS ORDERED: MORPHINE SULFATE 4 MG/ML SYR/VIAL IV ONE (16:45)
[2019-10-02] MEDS ORDERED: ONDANSETRON HCL 4 MG/2 ML VIAL IV ONE (16:45)
[2019-10-02 18:53] LABS: Basophils # (auto) 0.1 10 ^3/uL (0-0.2); Basophils % (auto) 0.8 % (0.0-2.0); Eosinophils # (auto) 0 10 ^3/uL (0-0.8); Eosinophils % (auto) 0.1 % (0.0-7.0); Hemoglobin 13.5 g/dL (12.2-16.2); Lymphocytes # (auto) 1.5 10 ^3/uL (0.4-5.4); Mean Corpuscular Hemoglobin 28.7 pg (28.0-32.0); Mean Corpuscular Hgb Conc. 31.4 g/dL (32.0-36.0); Mean Corpuscular Volume 91.4 fL (80.0-100.0); Monocytes # (auto) 0.5 10 ^3/uL (0-1.3); Neutrophils # (auto) 8.4 10 ^3/uL (1.6-8.6); Neutrophils % (auto) 80.1 % (37.0-80.0); Nucleated Red Blood Cells % 0.1 %; Platelet Count (auto) 146 10^3/uL (140-450); Red Blood Cells 4.71 10^6/uL (4.0-5.20); Red Cell Distribution Width 14.8 % (11.8-14.3); White Blood Cell 10.5 10^3/uL (4.4-10.8)
[2019-10-02 19:10] LABS: Albumin 4.8 g/dL (3.4-5.0); Calcium 11.8 mg/dL (8.5-10.1); Potassium 4.7 mmol/L (3.5-5.1)
[2019-10-02 19:14] LABS: BUN/Creatinine Ratio 14.3; Bilirubin, Total 0.9 mg/dL (0.2-1.0); Total Protein 8.9 g/dL (6.4-8.2)
[2019-10-02 22:15] VITALS: BP 141/70
== END 2019-10-03 00:09 | disposition home or self-care (01) ==
LOC: ER 16:12 → EDUNIT# 16:12 → EDBD 16:12 → ER 10-03 00:09
DX: R10.84 Generalized abdominal pain (principal); R11.2 Nausea with vomiting, unspecified; R19.7 Diarrhea, unspecified
CPT/HCPCS: 36415; 74176; 80053; 83690; 85025; 93005; 96374; 96375; 99285; C9113; J2270; J2405